=== PATIENT | female | born 1990 | race Two or more races ===

== ENCOUNTER 2016-07-04 14:26 | Emergency (ER) | payer OTHER ==
[~2016-07-04] VITALS: Ht 142.2 cm; Wt 81.6 kg
[2016-07-04 14:42] VITALS: BP 111/61
--- NOTE | 2016-07-04 15:41 | PHYS DOC ---
Past Medical History Past Medical History: No Pertinent History Past Surgical History: Smoking: Less than 1pk/day Alcohol Use: None Drug Use: None Adult General Chief Complaint Chief Complaint: MECHANICAL FALL HPI HPI Patient is a 26 year old female who presents with left elbow and left knee pain after slipping and falling on a wet floor this morning at 0500. She was at a gas station when she slipped and fell on a wet floor near a cooler. She denies hitting her head or loss of consciousness. She has pain in the left elbow radiating up to the left shoulder. She has pain in the left knee, but is able to walk on it. She is right-hand dominant. She does not have a PCP. Review of Systems Review of Systems Constitutional: Denies fever or chills. [] Eyes: Denies change in visual acuity, redness, or eye pain. [] Musculoskeletal: Denies back pain. Reports left elbow and left knee pain. Integument: Denies rash or skin lesions. [] Neurologic: Denies headache, focal weakness or sensory changes. Denies loss of consciousness. Current Medications Current Medications Current Medications Medications (Trade) Dose Ordered Sig/Santiago Start Time Stop Time Status Last Admin Dose Admin Acetaminophen/ Hydrocodone Bitart (Lortab 5/325) 1 tab 1X ONCE 07/04/16 16:30 07/04/16 16:31 07/04/16 16:15 1 TAB Allergies Allergies Allergies Coded Allergies Type Severity Reaction Last Updated Verified No Known Drug Allergies 04/30/15 No Physical Exam Physical Exam Constitutional: Well developed, well nourished, no acute distress, non-toxic appearance. [] HENT: Normocephalic, atraumatic, oropharynx moist. [] Eyes: PERRLA, EOMI, conjunctiva normal, no discharge. [] Neck: Normal range of motion, no tenderness, supple, no stridor. [] Skin: Warm, dry, no erythema, no rash. There is no laceration, abrasion, or ecchymosis. Back: No midline tenderness, no CVA tenderness. [] Extremities: Left elbow tenderness diffusely, decreased flexion of the elbow to 90, full extension, decreased supination/pronation, no edema. 2+ radial and ulnar pulses. Less than 2 second capillary refill in the fingers. Light touch sensation intact in the fingers. Extremities 2: Mild left shoulder tenderness over the A/C joint, mildly decreased abduction of the shoulder. Neurovascularly intact distally. Extremities 3: Left patellar tenderness, ROM intact, no edema. 2+ DP pulse. No tenderness of the foot, ankle, calf, thigh, or hip. The patient ambulates with a mild limp favoring the left side. Neurologic: Alert and oriented X 3, normal motor function, normal sensory function, no focal deficits noted. [] Psychologic: Affect normal, judgement normal, mood normal. [] Current Patient Data Vital Signs Vital Signs Date Time Temp Pulse Resp B/P Pulse Ox O2 Delivery O2 Flow Rate FiO2 07/04/16 16:15 16 98 Room Air 07/04/16 14:42 97.9 70 111/61 97.9 EKG EKG [] Radiology/Procedures Radiology/Procedures REASON: fall on wet floor PROCEDURE: ELBOW LEFT 3V; KNEE LEFT 3V; SHOULDER 2+V LEFT Left knee, 3 views, 07/04/2016: History: Fall, pain No fracture or dislocation is identified. No joint effusion is seen. IMPRESSION: No acute bony abnormality is detected. Left elbow, 3 views, 07/04/2016: No fracture or dislocation is identified. There is no radiographic evidence of an elbow joint effusion. IMPRESSION: No acute left elbow abnormality is detected. Left shoulder, 3 views, 07/04/2016: No fracture or dislocation is identified. IMPRESSION: No significant left shoulder abnormality is detected. Course & Med Decision Making Course & Med Decision Making Pertinent Labs and Imaging studies reviewed. (See chart for details) Patient presents with left elbow and left knee pain after slipping fall on a wet floor. On exam, she has tenderness in the left shoulder as well. She is neurovascularly intact without evidence of compartment syndrome. X-rays do not show any acute fractures or dislocations. She is provided with a sling for the arm in an Hector wrap for the knee prior to discharge. She is discharged home with prescription for Ultram. She is given contact information for orthopedics for follow-up. Return precautions were discussed. She verbalizes understanding and agrees with plan. Dragon Disclaimer Dragon Disclaimer This electronic medical record was generated, in whole or in part, using a voice recognition dictation system. Departure Departure Impression: Primary Impression: Left elbow contusion Additional Impressions: Knee contusion Left shoulder strain Disposition: 01 HOME, SELF-CARE Condition: STABLE Referrals: ANNE SAENZ MD Patient Instructions: Elbow Contusion, [id number], Knee Pain, [id number], Shoulder Pain, [id number] Additional Instructions: There were no broken bones or dislocations seen on your x-rays. Please wear the provided sling and Hector wrap as needed to help with your pain. Please remove the arm from the sling every few hours to perform range of motion exercises. Please take the prescribed pain medication as directed. Do not drive or operate heavy machinery while taking pain medication. Please follow-up with the orthopedic doctor listed below if your pain continues. Return to emergency department if you have any new or concerning symptoms. Scripts Tramadol Hcl (Ultram)50 Mg [id number] Mg PO Q6H PRN PAIN #20 TAB Prov:TAL CARTWRIGHT 07/04/16 Problem Qualifiers Additional Impressions: Knee contusion Encounter type: initial encounter Laterality: left Qualified Code: S80.02XA - Contusion of left knee, initial encounter Left shoulder strain Encounter type: initial encounter Qualified Code: S46.912A - Strain of unspecified muscle, fascia and tendon at shoulder and upper arm level, left arm , initial encounter TAL CARTWRIGHT Jul 04, 2016 15:41
--- NOTE | 2016-07-04 16:21 | RAD ---
Left knee, 3 views, 07/04/2016: History: Fall, pain No fracture or dislocation is identified. No joint effusion is seen. IMPRESSION: No acute bony abnormality is detected. Left elbow, 3 views, 07/04/2016: No fracture or dislocation is identified. There is no radiographic evidence of an elbow joint effusion. IMPRESSION: No acute left elbow abnormality is detected. Left shoulder, 3 views, 07/04/2016: No fracture or dislocation is identified. IMPRESSION: No significant left shoulder abnormality is detected.
[2016-07-04] MEDS ORDERED: TRAM-29 PO (16:30)
[2016-07-04] MEDS ORDERED: HYDROCODONE/APAP 5/325MG TABLET. PO ONE (16:30)
== END 2016-07-04 16:44 | disposition home or self-care (01) ==
LOC: ER 14:26
DX: S46.912A Strain of unspecified muscle, fascia and tendon at shoulder and upper arm level, left arm, initial encounter (principal); S50.02XA Contusion of left elbow, initial encounter; S80.02XA Contusion of left knee, initial encounter; F17.210 Nicotine dependence, cigarettes, uncomplicated; W01.0XXA Fall on same level from slipping, tripping and stumbling without subsequent striking against object, initial encounter; Y93.89 Activity, other specified; Y92.524 Gas station as the place of occurrence of the external cause; Y99.8 Other external cause status
CPT/HCPCS: 73030; 73080; 73562; 99284

== ENCOUNTER 2019-03-22 09:20 | Emergency (ER) | payer OTHER ==
[~2019-03-22] VITALS: Ht 139.7 cm; Wt 108.9 kg
[~2019-03-22 09:20] MED LIST: TRAM-48 PO
[2019-03-22 09:33] VITALS: BP 111/61
[2019-03-22] MEDS ORDERED: AMOX875T PO (09:58)
--- NOTE | 2019-03-22 09:58 | PHYS DOC ---
Past Medical History Past Medical History: No Pertinent History Past Surgical History: , Hysterectomy, Tubal ligation Alcohol Use: None Drug Use: None Adult General Chief Complaint Chief Complaint: EARACHE/EAR PAIN HPI HPI Patient is a 29 year old female who presents to the ED today complaining of mild to moderate right ear pain described as throbbing and intermittent that began 2 days ago. Patient denies any fever. She states she is currently on oxycodone after having an ectopic surgery 2 days ago. She states the oxycodone helps with the pain. She also reports she is a smoker. Review of Systems Review of Systems Constitutional: Denies fever or chills [] Eyes: Denies change in visual acuity, redness, or eye pain [] HENT: Reports right ear pain. Denies nasal congestion or sore throat [] Respiratory: Denies cough or shortness of breath [] Cardiovascular: No additional information not addressed in HPI [] GI: Denies abdominal pain, nausea, vomiting, bloody stools or diarrhea [] : Denies dysuria or hematuria [] Musculoskeletal: Denies back pain or joint pain [] Integument: Denies rash or skin lesions [] Neurologic: Denies headache, focal weakness or sensory changes [] All other systems were reviewed and found to be within normal limits, except as documented in this note. Allergies Allergies Allergies Coded Allergies Type Severity Reaction Last Updated Verified No Known Drug Allergies 04/30/15 No Physical Exam Physical Exam Constitutional: Well developed, well nourished, no acute distress, non-toxic appearance. [] HENT: Normocephalic, atraumatic, bilateral external ears normal, oropharynx moist, no oral exudates, nose normal. [] Right TM is mildly injected Eyes: PERRLA, EOMI, conjunctiva normal, no discharge. [] Neck: Normal range of motion, no tenderness, supple, no stridor. [] Cardiovascular:Heart rate regular rhythm, no murmur [] Lungs & Thorax: Bilateral breath sounds clear to auscultation [] Abdomen: Bowel sounds normal, soft, no tenderness, no masses, no pulsatile masses. [] Skin: Warm, dry, no erythema, no rash. [] Back: No tenderness, no CVA tenderness. [] Extremities: No tenderness, no cyanosis, no clubbing, ROM intact, no edema. [] Neurologic: Alert and oriented X 3, normal motor function, normal sensory function, no focal deficits noted. [] Psychologic: Affect normal, judgement normal, mood normal. [] Current Patient Data Vital Signs Vital Signs Date Time Temp Pulse Resp B/P (MAP) Pulse Ox O2 Delivery O2 Flow Rate FiO2 03/22/19 09:33 97.8 68 16 111/61 (78) 99 Room Air 97.8 EKG EKG [] Radiology/Procedures Radiology/Procedures [] Course & Med Decision Making Course & Med Decision Making Pertinent Labs and Imaging studies reviewed. (See chart for details) This is a 29-year-old female patient with otitis media. Patient is a smoker, encouraged to consider smoking cessation. Discharged on amoxicillin and follow- up with PCP in one to 2 weeks. Dragon Disclaimer Dragon Disclaimer This electronic medical record was generated, in whole or in part, using a voice recognition dictation system. Departure Departure Impression: Primary Impression: Smoking addiction Additional Impression: Otitis media Disposition: HOME, SELF-CARE Condition: STABLE (because of not) Referrals: NO PCP (PCP) follow up with your doctor in 1 week Patient Instructions: Otitis Media, Adult, [id number] Additional Instructions: You were evaluated in the emergency room for an ear infection. We put you on antibiotics, ensure you complete them. Scripts Amoxicillin (AMOXICILLIN) 875 Mg Tablet 1 TAB PO BID, #20 TAB Prov: FAISAL LEDEZMA APRN 03/22/19 Problem Qualifiers Additional Impression: Otitis media Otitis media type: other nonsuppurative Chronicity: acute Laterality: right Recurrence: non-recurrent Qualified Codes: H65.191 - Other acute nonsuppurative otitis media, right ear FAISAL LEDEZMA APRN Mar 22, 2019 09:58
== END 2019-03-22 10:05 | disposition home or self-care (01) ==
LOC: ER 09:20
DX: H65.191 Other acute nonsuppurative otitis media, right ear (principal); F17.200 Nicotine dependence, unspecified, uncomplicated
CPT/HCPCS: 99283

== ENCOUNTER 2019-10-09 16:02 | Emergency (ER) | payer OTHER ==
[~2019-10-09] VITALS: Ht 142.2 cm; Wt 122.7 kg
[~2019-10-09 16:02] MED LIST changes: +AMOX875T PO; +NAPR-514 PO; +PENI500T PO
[2019-10-09 16:10] VITALS: BP 127/58
--- NOTE | 2019-10-09 17:45 | RAD ---
ANKLE LEFT 3V DATE: 10/09/2019 4:30 PM INDICATION: Reason: pain, trauma / Spl. Instructions: / History: COMPARISON: None. FINDINGS/ IMPRESSION: Tiny ossific density along the inferior margin of the lateral malleolus, which may represent an age indeterminate avulsion. Ankle mortise is congruent. No widening of the distal tibiofibular syndesmosis. Mild soft tissue swelling. Electronically signed by: Nicko Wren MD (10/09/2019 5:42 PM) JUSTINO
--- NOTE | 2019-10-09 18:04 | PHYS DOC ---
Past Medical History Past Medical History: No Pertinent History Past Surgical History: , Hysterectomy, Tubal ligation Smoking Status: Never Smoker Alcohol Use: None Drug Use: None General Adult EDM: Chief Complaint: ANKLE PROBLEM HPI: HPI: Patient is a 29 year old female who presents with ankle pain. Patient rolled her ankle earlier today and has constant pain since that time. She has been able to minimally walk on her foot since that time but states that it is extremely painful. She denies any other injuries. Review of Systems: Review of Systems: General: Denies fever, chills, sweats, fatigue Eyes: Denies drainage, blurred vision HENT: Denies rhinorrhea, sore throat Respiratory: Denies cough, shortness of breath, wheezing Cardiac: Denies edema, palpitations, chest pain GI: Denies abdominal pain, N/V MSK: Denies back pain, neck pain Skin: Denies rash, jaundice Neuro: Denies headache, dizziness Psychiatric: Denies SI/HI Heart Score: Risk Factors: Risk Factors: DM, Current or recent (<one month) smoker, HTN, HLP, family history of CAD, obesity. Risk Scores: Score 0 - 3: 2.5% MACE over next 6 weeks - Discharge Home Score 4 - 6: 20.3% MACE over next 6 weeks - Admit for Clinical Observation Score 7 - 10: 72.7% MACE over next 6 weeks - Early Invasive Strategies Allergies: Allergies: Allergies Coded Allergies Type Severity Reaction Last Updated Verified No Known Drug Allergies 04/30/15 No Physical Exam: PE: Constitutional: Well developed, well nourished, Cooperative, NAD, non-toxic appearing HEENT: Normocephalic, atraumatic, oropharynx moist, EOMI, PERRL, no drainage from eyes, normal conjunctiva Neck: Supple, normal range of motion, no stridor Cardiovascular: RRR, 2+ radial pulses bilaterally, no edema Respiratory: CTA bilaterally, no respiratory distress, no wheezing/crackles Abdomen: Soft, nontender, nondistended, no masses Skin: Warm, dry, intact Extremities: No obvious deformities. Ankle: Minimal swelling and mild tenderness to the lateral malleolus Neurologic: Alert and Oriented x3, motor and sensory function grossly normal, no focal deficits Psychologic: Normal affect, normal judgment, normal mood. No SI/HI Current Patient Data: Vital Signs: Vital Signs Date Time Temp Pulse Resp B/P (MAP) Pulse Ox O2 Delivery O2 Flow Rate FiO2 10/09/19 16:10 98.3 71 24 127/58 (81) 98 Room Air 98.3 EKG: EKG: [] Radiology/Procedures: Radiology/Procedures: [] Course & Med Decision Making: Course & Med Decision Making Pertinent Labs and Imaging studies reviewed. (See chart for details) Patient presents with ankle pain after trauma. X-ray was done and shows a age- indeterminate avulsion fracture. Given her tenderness she will be placed on a posterior splint. She is given information to follow-up with orthopedic surgery. Patient's test results and vitals while in the ED were fully reviewed and discussed with the patient. Patient is stable and at this time does not need admission to the hospital. We have discussed strict return precautions and the importance of following up with their Primary Care Physician. Patient stated understanding and was given an opportunity to ask any questions. Dragon Disclaimer: Dragon Disclaimer: This electronic medical record was generated, in whole or in part, using a voice recognition dictation system. Departure Departure Impression: Primary Impression: Avulsion fracture of ankle Disposition: HOME, SELF-CARE Condition: GOOD Referrals: DONNY KOHLI II, MD Patient Instructions: Splint Care, [id number] DINO DOMINGUEZ MD Oct 09, 2019 18:04
== END 2019-10-09 18:24 | disposition home or self-care (01) ==
LOC: ER 16:02
DX: S82.65XA Nondisplaced fracture of lateral malleolus of left fibula, initial encounter for closed fracture (principal); X58.XXXA Exposure to other specified factors, initial encounter; Y93.89 Activity, other specified; Y92.89 Other specified places as the place of occurrence of the external cause; Y99.8 Other external cause status
CPT/HCPCS: 29515; 73610; 99283

== ENCOUNTER 2020-09-15 13:36 | Emergency (ER) | payer OTHER ==
[~2020-09-15] VITALS: Ht 139.7 cm; Wt 113.6 kg
[2020-09-15] MEDS ORDERED: PRED50TA PO (14:18)
[2020-09-15] MEDS ORDERED: AMOX875T PO (14:18)
--- NOTE | 2020-09-15 14:18 | PHYS DOC ---
Past Medical History Past Medical History: No Pertinent History (LARAFAISAL MARK MANAGER [employer]ORY MANAGEMENT) Past Surgical History: , Hysterectomy, Tubal ligation (LACHELLEFAISAL Torres MANAGER [employer]NAGEMENT) Smoking Status: Never Smoker Alcohol Use: None Drug Use: None (DARIENFAISAL Vasquez MANAGER [employer]ORY MANAGEMENT) General Adult EDM: Chief Complaint: MULTIPLE COMPLAINTS HPI: HPI: Patient is a 30 year old female who presents to the ED today complaining of a sore throat that began yesterday. Patient denies any fever, coughing or congestion, she states she already had COVID-19 in June 2020. (FAISAL LEDEZMA Vasquez MANAGER IN[employer]ORY MANAGEMENT) Review of Systems: Review of Systems: Constitutional: Denies fever or chills. [] Eyes: Denies change in visual acuity. [] HENT: Reports sore throat. Denies nasal congestion Cardiovascular: Denies chest pain or edema. [] GI: Denies abdominal pain, nausea, vomiting, bloody stools or diarrhea. [] : Denies dysuria. [] Musculoskeletal: Denies back pain or joint pain. [] Integument: Denies rash. [] Neurologic: Denies headache, focal weakness or sensory changes. [] Psychiatric: Denies depression or anxiety. [] (LARAJASMEETFAISAL Torres MANAGER INVENTORY MANAGEMENT) Heart Score: C/O Chest Pain: N/A Risk Factors: Risk Factors: DM, Current or recent (<one month) smoker, HTN, HLP, family history of CAD, obesity. Risk Scores: Score 0 - 3: 2.5% MACE over next 6 weeks - Discharge Home Score 4 - 6: 20.3% MACE over next 6 weeks - Admit for Clinical Observation Score 7 - 10: 72.7% MACE over next 6 weeks - Early Invasive Strategies (FAISAL LEDEZMA MANAGER IN[employer]ORY MANAGEMENT) Allergies: Allergies: Allergies Coded Allergies Type Severity Reaction Last Updated Verified No Known Drug Allergies 04/30/15 No (LACHELLEFAISAL Torres MANAGER IN[employer]ORY MANAGEMENT) Physical Exam: PE: Constitutional: Well developed, well nourished, no acute distress, non-toxic appearance. [] HENT: Normocephalic, atraumatic, bilateral external ears normal, oropharynx moist, no oral exudates, nose normal. [] Midline uvula, +3 tonsils bilaterally with exudate on the left side more than the right Eyes: PERRLA, EOMI, conjunctiva normal, no discharge. [] Neck: Normal range of motion, no tenderness, supple, no stridor. [] Cardiovascular:Heart rate regular rhythm, no murmur [] Lungs & Thorax: Bilateral breath sounds clear to auscultation [] Abdomen: Bowel sounds normal, soft, no tenderness, no masses, no pulsatile masses. [] Skin: Warm, dry, no erythema, no rash. [] Back: No tenderness, no CVA tenderness. [] Extremities: No tenderness, no cyanosis, no clubbing, ROM intact, no edema. [] Neurologic: Alert and oriented X 3, normal motor function, normal sensory function, no focal deficits noted. [] Psychologic: Affect normal, judgement normal, mood normal. [] (FAISAL LEDEZMA APRN) Current Patient Data: Vital Signs: Vital Signs Date Time Temp Pulse Resp B/P (MAP) Pulse Ox O2 Delivery O2 Flow Rate FiO2 09/15/20 14:01 98.2 85 18 116/56 (76) 98 Room Air 98.2 (FAISAL LEDEZMA APRN) EKG: EKG: [] (FAISAL LEDEZMA APRN) Radiology/Procedures: Radiology/Procedures: [] (FAISAL LEDEZMA APRN) Course & Med Decision Making: Course & Med Decision Making Pertinent Labs and Imaging studies reviewed. (See chart for details) This is a 30-year-old female patient presenting to the ED today with sore throat since yesterday. Positive rapid strep. Discharged on amoxicillin for 10 days and prednisone for 5 days. Tylenol/Motrin for pain or fever. Salt water gargles also recommended. Follow-up with ENT or primary care doctor in 1 to 2 weeks. (FAISAL LEDEZMA APRN) Dragon Disclaimer: Dragon Disclaimer: This electronic medical record was generated, in whole or in part, using a voice recognition dictation system. (FAISAL LEDEZMA APRN) Departure Departure Impression: Primary Impression: Strep throat Disposition: HOME / SELF CARE / HOMELESS Condition: STABLE Referrals: NO PCP (PCP) UZIEL VAZQUEZ MD follow up in 1-2 weeks Patient Instructions: Strep Throat Additional Instructions: Your strep test was positive in the emergency room. We put you on antibiotics, ensure you complete them. You also have a prescription for prednisone for 5 days. Ensure you complete it. You can take Tylenol or Motrin for pain or fever. Maintain good hand hygiene at home. Use salt water gargles as needed for sore throat. Follow-up with your doctor or the ENT provided in 1-2. Come back to the ED at any point symptoms worsen Scripts Prednisone (PREDNISONE) 50 Mg Tablet 1 TAB PO DAILY, #5 TAB Prov: FAISAL LEDEZMA APRN 09/15/20 Amoxicillin (AMOXICILLIN) 875 Mg Tablet 1 TAB PO BID, #20 TAB Prov: FAISAL LEDEZMA APRN 09/15/20 Attending Signature Attending Signature I have participated in the care of this patient and I have reviewed and agree with all pertinent clinical information above including history, exam, and recommendations. (COREY JASON DO) FAISAL LEDEZMA APRN September 15, 2020 14:18 COREY JASON DO September 15, 2020 17:45
[2020-09-15 14:35] VITALS: BP 117/82
== END 2020-09-15 14:35 | disposition home or self-care (01) ==
LOC: ER 13:36
DX: J02.0 Streptococcal pharyngitis (principal); B95.0 Streptococcus, group A, as the cause of diseases classified elsewhere
CPT/HCPCS: 87880; 99283

== ENCOUNTER 2021-01-28 11:40 | Emergency (ER) | payer OTHER ==
[~2021-01-28] VITALS: Ht 139.7 cm; Wt 121.8 kg
[~2021-01-28 11:40] MED LIST changes: +PRED50TA PO
--- NOTE | 2021-01-28 12:31 | PHYS DOC ---
Past Medical History Past Medical History: No Pertinent History Additional Past Medical Histor: COVID 19 Past Surgical History: , Hysterectomy, Tubal ligation Smoking Status: Former Smoker Additional Information: quit 1 year ago Alcohol Use: None Drug Use: None General Adult EDM: Chief Complaint: HEADACHE HPI: HPI: Patient is a 30 year old female who presents with 3 days of headache, shortness of breath, cough, throat pain, negative nausea, vomiting, diarrhea. Rates her discomfort at a 8 out of 10 at this time. She quit smoking 1 year ago. She did have Covid back in June 2020 and she does have her Covid vaccinations. Denies chest pain, syncope, dizziness, numbness tingling or focal weakness, back pain, neck pain, abdominal pain. Review of Systems: Review of Systems: Constitutional: Denies fever or +chills. [] Eyes: Denies change in visual acuity. [] HENT: Denies nasal congestion or +sore throat. [] Respiratory: + cough or +shortness of breath. [] Cardiovascular: Denies chest pain or edema. [] GI: Denies abdominal pain, +nausea, +vomiting, denies bloody stools or +diarrhea. [] : Denies dysuria. [] Musculoskeletal: Denies back pain or joint pain. +bodyaches[] Integument: Denies rash. [] Neurologic: + headache, denies focal weakness or sensory changes. [] Endocrine: Denies polyuria or polydipsia. [] Lymphatic: Denies swollen glands. [] Psychiatric: Denies depression or anxiety. [] Heart Score: C/O Chest Pain: No Risk Factors: Risk Factors: DM, Current or recent (<one month) smoker, HTN, HLP, family hi story of CAD, obesity. Risk Scores: Score 0 - 3: 2.5% MACE over next 6 weeks - Discharge Home Score 4 - 6: 20.3% MACE over next 6 weeks - Admit for Clinical Observation Score 7 - 10: 72.7% MACE over next 6 weeks - Early Invasive Strategies Current Medications: Current Medications Medications (Trade) Dose Ordered Sig/Santiago Start Time Stop Time Status Last Admin Dose Admin Ketorolac Tromethamine (Toradol 30mg Vial) 30 mg 1X ONCE 01/28/21 12:15 01/28/21 12:16 DC Prochlorperazine Edisylate (Compazine) 5 mg 1X ONCE 01/28/21 12:15 01/28/21 12:16 DC Sodium Chloride 1,000 ml @ 1,000 mls/hr Q1H 01/28/21 12:15 01/28/21 13:14 Allergies: Allergies: Allergies Coded Allergies Type Severity Reaction Last Updated Verified No Known Drug Allergies 01/28/21 No Physical Exam: PE: Constitutional: Well developed, well nourished, no acute distress, non-toxic appearance. [] HENT: Normocephalic, atraumatic, bilateral external ears normal, oropharynx moist, no oral exudates, nose normal. [] Eyes: PERRLA, EOMI, conjunctiva normal, no discharge. [] Neck: Normal range of motion, no tenderness, supple, no stridor. [] Cardiovascular:Heart rate regular rhythm, no murmur [] Lungs & Thorax: Bilateral breath sounds clear to auscultation [] Abdomen: Bowel sounds normal, soft, no tenderness, no masses, no pulsatile masses. [] Skin: Warm, dry, no erythema, no rash. [] Back: No tenderness, no CVA tenderness. [] Extremities: No tenderness, no cyanosis, no clubbing, ROM intact, no edema. [] Neurologic: Alert and oriented X 3, normal motor function, normal sensory function, no focal deficits noted. [] Psychologic: Affect normal, judgement normal, mood normal. [] Normal Physical Exam Current Patient Data: Vital Signs: Vital Signs Date Time Temp Pulse Resp B/P (MAP) Pulse Ox O2 Delivery O2 Flow Rate FiO2 01/28/21 12:03 97.8 73 24 148/67 (94) 99 Room Air 97.8 EKG: EKG: [] Radiology/Procedures: Radiology/Procedures: [] Impression: [facility] [address] [place] [address] IMAGING REPORT Signed PATIENT: CHRIS HAJI ACCOUNT: [id number] : 1990 LOCATION: ER AGE: 30 SEX: F EXAM STATUS: REG ER ORD. PHYSICIAN: ALINA DIMAS APRN REASON: SOA, COUGH not ready on bed alvarenga 12:25 PROCEDURE: PORTABLE CHEST 1V Single view of the chest. 01/28/2021 12:40 PM Indication: Reason: SOA, COUGH Comparison: None Findings: There is no focal consolidation. There is no pleural effusion or pneumothorax. The cardiomediastinal silhouette and pulmonary vasculature are within normal limits. No acute osseous abnormalities are seen. Impression: No evidence of acute cardiopulmonary process. Electronically signed by: Franklyn Ricardo MD (01/28/2021 12:59 PM) [id number] DICTATED and SIGNED BY: FRANKLYN RICARDO MD DATE: 01/28/21 [id number] 0 Course & Med Decision Making: Course & Med Decision Making Pertinent Labs and Imaging studies reviewed. (See chart for details) COVID-19 CRITERIA: The patient was evaluated during the global COVID-19 pandemic, and that diagnosis was suspected/considered upon their initial presentation. Their evaluation, treatment and testing was consistent with current guidelines for patients who present with complaints or symptoms that may be related to COVID-19. See HPI. Alert and oriented x4. Ambulatory steady gait. Speaks in full clear sentences. Skin pink warm and dry. Lungs are clear all station all lobes. Abdomen is soft and nontender. No CVA tenderness. Afebrile at this time. She took NyQuil last night. Patient is positive for influenza B. Covid is negative. [] Elvira Disclaimer: Elvira Disclaimer: This electronic medical record was generated, in whole or in part, using a voice recognition dictation system. COVID-19 Patient Risks: Age 65 or older: No Sign of co-morbidity: Yes Exp to person + for COVID: No Exp to PUI: No Travel from affected area: No Lower respiratory symptoms: Yes Fever: No Other: Yes (N,V,D) PPE Use: Full PPE with N95 mask or PAPR: Yes Departure Departure Impression: Primary Impression: Influenza B Disposition: 01 HOME / SELF CARE / HOMELESS Condition: STABLE Referrals: NO PCP (PCP) Patient Instructions: Influenza, Adult Additional Instructions: Follow-up with primary care if needed. Take ibuprofen or Tylenol for your pain. Drink plenty of fluid. Rest. Scripts Albuterol Sulfate (PROAIR HFA INHALER) 8.5 Gm Hfa.aer.ad 1 PUFF INH PRN Q6HRS PRN for SHORTNESS OF BREATH, #1 EACH 0 Refills Prov: ALINA DIMAS APRN 01/28/21 ALINA DIMAS APRN Jan 28, 2021 12:31
[2021-01-28] MEDS: IV NORMAL SALINE 1000ML BAG 1,000 ML IV SCH (12:41)
[2021-01-28] MEDS: PROCHLORPERAZINE 10 MG/2 ML VIAL. IVP ONE (12:43)
[2021-01-28] MEDS: KETOROLAC 30 MG/ML VIAL. IVP ONE (12:45)
[2021-01-28 12:56] LABS: INFLUENZA A PATIENT NEGATIVE (NEGATIVE)
[2021-01-28 13:00] LABS: BASO # 0.1 x10^3/uL (0.0-0.2); BASO % 1 % (0-3); EOS # 0.2 x10^3/uL (0.0-0.7); EOS % 2 % (0-3); HEMOGLOBIN 12.9 g/dL (12.0-15.5); LYMPH # 2.6 x10^3/uL (1.0-4.8); LYMPH % 27 % (24-48); MEAN CORPUSCULAR HEMOGLOBIN 29 pg (25-35); MEAN CORPUSCULAR HGB CONC 35 g/dL (31-37); MEAN CORPUSCULAR VOLUME 83 fL (79-100); MONO # 0.5 x10^3/uL (0.0-1.1); MONO % 5 % (0-9); NEUT # 6.4 x10^3/uL (1.8-7.7); NEUT % 65 % (31-73); PLATELET COUNT 347 x10^3/uL (140-400); RED BLOOD COUNT 4.46 x10^6/uL (3.50-5.40); RED CELL DISTRIBUTION WIDTH 13.8 % (11.5-14.5); WHITE BLOOD COUNT 9.8 x10^3/uL (4.0-11.0)
[2021-01-28 13:11] LABS: INFLUENZA B PATIENT POSITIVE (NEGATIVE)
[2021-01-28 13:16] LABS: CALCIUM 8.2 mg/dL (8.5-10.1); CREATININE 0.8 mg/dL (0.6-1.0); GFR 83.7; POTASSIUM 3.8 mmol/L (3.5-5.1)
[2021-01-28 13:20] LABS: ALBUMIN 3.1 g/dL (3.4-5.0); ALBUMIN/GLOBULIN RATIO 0.8 (1.0-1.7); TOTAL BILIRUBIN 0.2 mg/dL (0.2-1.0)
[2021-01-28] MEDS ORDERED: ALBU2.5V8 INH (13:47)
--- NOTE | 2021-01-28 14:00 | RAD ---
Single view of the chest. 01/28/2021 12:40 PM Indication: Reason: SOA, COUGH Comparison: None Findings: There is no focal consolidation. There is no pleural effusion or pneumothorax. The cardiome diastinal silhouette and pulmonary vasculature are within normal limits. No acute osseous abnormaliti es are seen. Impression: No evidence of acute cardiopulmonary process. Electronically signed by: Franklyn Swann MD (01/28/2021 12:59 PM) [id number]
[2021-01-28 14:29] VITALS: BP 131/60
[2021-01-28] MEDS: DEXAMETHASONE 4 MG TABLET PO ONE (14:32)
== END 2021-01-28 14:34 | disposition home or self-care (01) ==
LOC: ER 11:40
DX: J10.1 Influenza due to other identified influenza virus with other respiratory manifestations (principal); Z20.2 Contact with and (suspected) exposure to infections with a predominantly sexual mode of transmission; Z87.891 Personal history of nicotine dependence
CPT/HCPCS: 36415; 71045; 80053; 83690; 85025; 87070; 87426; 87804; 87880; 96361; 96374; 96375; 99284; J0780; J1885; J7030; U0003; U0005